=== PATIENT | male | born 1955 | race Caucasian/White ===

== ENCOUNTER 2023-12-21 18:11 | Emergency (ER) | payer MEDICARE, OTHER ==
[~2023-12-21] VITALS: Ht 185.4 cm; Wt 106.9 kg
[~2023-12-21 18:11] MED LIST: ADULTS 50+ MUL1 EACH PO; CYCLOBENZAPRINE10 MG PO; FISH OIL 1,2001 EACH PO; METOPROLOL SUCC25 MG PO
[2023-12-21 21:29] LABS: BASOPHILS 0.6 % (0-2); EOSINOPHILS 1.4 % (0-6); HEMATOCRIT 45.6 % (35.0-50.0); HEMOGLOBIN 15.6 g/dL (12.0-18.0); LYMPHOCYTES 25.9 % (24-44); MCH 31.1 (27-36); MCHC 34.1 g/dl (30-36); MCV 91.1 fl (81-99); MONOCYTES 9.4 % (0-12); NEUTROPHILS 62.7 % (39-80); PLATELET COUNT 233 K/uL (140-440); RBC 5.01 M/ul (4.3-5.7); RDW 13.6 (10.5-15.0)
[2023-12-21 21:39] LABS: PARTIAL THROMBOPLASTIN TIME 26.7 Sec (22.9-41.3)
[2023-12-21 21:40] LABS: INR 1.13 (0.80-1.30); PROTIME 13.8 Sec (11.2-14.2)
[2023-12-21 21:44] LABS: ALBUMIN/GLOBULIN RATIO 0.98 (1.1-2.4); ANION GAP 13.6 (7-21); BILIRUBIN, TOTAL 0.5 ng/dL (0.2-1.0); BUN/CREATININE RATIO 14.54 (6.0-28.6); CALCIUM 9.4 mg/dL (8.5-10.1); CREATININE, SERUM 1.1 mg/dL (0.70-1.30); POTASSIUM 3.6 mmol/L (3.5-5.1); PROTEIN, TOTAL 8.1 g/dL (6.4-8.2)
[2023-12-21] MEDS ORDERED: PREDNISONE20 MG PO (21:48)
[2023-12-21 22:00] LABS: ABO O; RH POSITIVE
[2023-12-21] MEDS ORDERED: predniSONE 20 MG TAB PO ONE (22:00)
[2023-12-21 22:01] LABS: ANTIBODY SCREEN NEGATIVE
[2023-12-21 22:28] VITALS: BP 139/66
== END 2023-12-21 22:36 | disposition home or self-care (01) ==
LOC: ED 18:11
PROVIDERS: Emergency Medicine
DX: K64.4 Residual hemorrhoidal skin tags (principal); M10.9 Gout, unspecified
CPT/HCPCS: 36415; 80053; 85025; 85610; 85730; 86850; 86900; 86901; 99283; J7512